=== PATIENT | male | born 1950 | race Caucasian/White ===

== ENCOUNTER 2022-01-28 14:18 | Inpatient (IN) ==
[2022-01-28 15:05] LABS: Basophils % 0.1 % (0.0-0.8); Hematocrit 47.7 VOL% (42.0-52.0); Hemoglobin 15.4 GM/DL (14.0-18.0); Immature Granulocytes % 0.5 %; Immature Granulocytes Absolute 0.08 #; Lymphocytes # 1.6 10*3/uL (1.4-4.0); Lymphocytes % 11.1 % (21.2-54.2); Mean Corpuscular HGB Conc 32.3 GM/DL (32-36); Mean Corpuscular Volume 85.6 FL (87-102); Mean Platelet Volume 12.5 FL (9.6-12.0); Monocytes % 6.4 % (1.7-12.7); Neutrophils % 81.9 % (38.7-73.9); Platelet Count 164 T/CUMM (130-400); Red Blood Count 5.57 MC/CUMM (3.8-5.5); Red Cell Distribution Width 12.5 % (9.3-17.3); White Blood Count 14.8 T/CUMM (4-12)
[2022-01-28 15:23] LABS: Alanine Aminotransferase 247 U/L (16-61); Albumin 3.3 G/DL (3.4-5.0); Alkaline Phosphatase 126 U/L (45-117); Aspartate Amino Transferase 367 U/L (0-37); Blood Urea Nitrogen 36 MG/DL (7-18); Carbon Dioxide 26 MMOL/L (21-32); Estimated Glom Filtration Rate 61 ML/MIN; Osmolality,Calculated 297.7 MOS/KG (273-304); Sodium 131 MMOL/L (136-145); Total Protein 7.4 G/DL (6.4-8.2)
[2022-01-28 15:25] LABS: Glucose 605 MG/DL (74-106)
[2022-01-28 16:11] LABS: INR 1.2; PT Patient Result 12.9 SECS (10.5-12.0)
[2022-01-28 16:26] LABS: Arterial Base Excess iSTAT -1 MMOL/L (-2.5-2.5); Arterial Bicarbonate iSTAT 23.9 MMOL/L (20-26); Arterial O2 Saturation iSTAT 96 % (95-100); Arterial PCO2 iSTAT 40 MM HG (35-48); Arterial PO2 iSTAT 81 MM HG (80-95); Arterial Total CO2 iSTAT 25 MMO/L (23-27); Arterial pH iSTAT 7.386 (7.35-7.45)
[2022-01-28] MEDS ORDERED: DEXTROSE 50% 25 GM/50 ML VIAL IV PRN (16:40)
[2022-01-28] MEDS ORDERED: GLUCAGON 1 MG VIAL IM PRN (16:40)
[2022-01-28] MEDS ORDERED: ONDANSETRON 4 MG/2 ML VIAL IV PRN (16:40)
[2022-01-28] MEDS ORDERED: ZALEPLON 5 MG CAPSULE PO PRN (16:48)
[2022-01-28] MEDS ORDERED: DOCUSATE SODIUM 100 MG CAPSULE PO PRN (16:48)
[2022-01-28] MEDS ORDERED: ASPIRIN EC 325 MG TABLET PO STA (16:50)
[2022-01-28] MEDS ORDERED: SODIUM CHLORIDE 0.45% 1,000 ML IV SCH (17:00)
[2022-01-28] MEDS ORDERED: DEXTROSE 10% 250 ML BAG IV PRN (17:05)
[2022-01-28 17:23] LABS: Bacteria,Urine Occasional /HPF (Few); Mucus,Urine Occasional /LPF (Occasional); RBC,Urine 1 /HPF (0-4)
[2022-01-28 17:32] LABS: Urine Color Light Yellow (Yellow)
[2022-01-28 17:33] LABS: Glucose,Urine (UA) >=1000 mg/dL (Negative); Ketones,Urine 40 mg/dL (Negative); Nitrite,Urine Negative (Negative); Protein,Urine Negative (Negative); Urine Appearance Clear (Clear); Urine Specific Gravity <= 1.005 (1.001-1.035)
[2022-01-28 17:34] LABS: Bilirubin,Urine Negative (Negative); Blood, Urine Negative (Negative); Urine Urobilinogen < 2.0 eU/dL (<2.0)
[2022-01-28] MEDS: ENOXAPARIN 40 MG/0.4 ML SYRINGE SUBCUT SCH (17:46)
[2022-01-29] MEDS: sitaGLIPtin 100 MG TABLET PO SCH ×2 (00:01→21:48)
[2022-01-29] MEDS: MIDODRINE 5 MG TABLET PO SCH ×3 (00:01→21:49)
[2022-01-29] MEDS: ACETAMINOPHEN 325 MG TABLET PO PRN (04:24)
[2022-01-29 05:03] LABS: Basophils % 0.1 % (0.0-0.8); Eosinophils % 0.2 % (0.00-10.9); Hematocrit 43.6 VOL% (42.0-52.0); Hemoglobin 14.5 GM/DL (14.0-18.0); Immature Granulocytes % 0.6 %; Immature Granulocytes Absolute 0.08 #; Lymphocytes # 2.1 10*3/uL (1.4-4.0); Lymphocytes % 15.6 % (21.2-54.2); Mean Corpuscular HGB Conc 33.3 GM/DL (32-36); Mean Corpuscular Volume 84.8 FL (87-102); Mean Platelet Volume 12.8 FL (9.6-12.0); Monocytes % 7.1 % (1.7-12.7); Neutrophils % 76.4 % (38.7-73.9); Platelet Count 173 T/CUMM (130-400); Red Blood Count 5.14 MC/CUMM (3.8-5.5); Red Cell Distribution Width 12.6 % (9.3-17.3); White Blood Count 13.7 T/CUMM (4-12)
[2022-01-29 05:25] LABS: Osmolality,Calculated 281.2 MOS/KG (273-304); Potassium 3.6 MMOL/L (3.5-5.1); Risk Ratio 5.87; Thyroid Stimulating Hormone 0.45 uIU/ml (0.358-3.74)
[2022-01-29 08:23] LABS: Albumin 2.9 G/DL (3.4-5.0); Bilirubin,Direct 0.2 MG/DL (0.0-0.20); Bilirubin,Indirect 0.6 MG/DL (0.0-1.0); Bilirubin,Total 0.8 MG/DL (0.20-1.00); Total Protein 7.1 G/DL (6.4-8.2)
[2022-01-29] MEDS ORDERED: DEXTROSE 50% 25 GM/50 ML VIAL IV PRN (08:33)
[2022-01-29] MEDS: INSULIN REGULAR 100 UNIT/ML SUBCUT SCH ×5 (09:13→21:50)
[2022-01-29] MEDS: PANTOPRAZOLE 40 MG TABLET PO SCH (09:41)
[2022-01-29] MEDS: DAPAGLIFLOZIN 10 MG TABLET PO SCH (09:41)
[2022-01-29] MEDS: oxyCODONE ER 20 MG TABLET PO SCH ×3 (09:41→21:49)
[2022-01-29] MEDS: ASPIRIN EC 325 MG TABLET PO SCH (09:41)
[2022-01-29] MEDS: BACLOFEN 10 MG TABLET PO SCH ×3 (09:41→23:08)
[2022-01-29] MEDS: SODIUM CHLORIDE 0.45% 1,000 ML IV SCH ×3 (10:04→21:50)
[2022-01-29] MEDS ORDERED: BACLOFEN 10 MG TABLET PO SCH (15:00)
[2022-01-29] MEDS ORDERED: oxyCODONE ER 20 MG TABLET PO SCH (15:00)
[2022-01-29] MEDS: ENOXAPARIN 40 MG/0.4 ML SYRINGE SUBCUT SCH (16:27)
[2022-01-29] MEDS: INSULIN GLARGINE 100 UNIT/ML SUBCUT SCH ×2 (21:50)
[2022-01-30 06:25] LABS: Basophils % 0.3 % (0.0-0.8); Eosinophils # 0.2 10*3/uL (0.0-0.87); Eosinophils % 1.8 % (0.00-10.9); Hematocrit 45.3 VOL% (42.0-52.0); Hemoglobin 14.6 GM/DL (14.0-18.0); Immature Granulocytes % 0.7 %; Immature Granulocytes Absolute 0.08 #; Mean Corpuscular HGB Conc 32.2 GM/DL (32-36); Mean Corpuscular Volume 87.8 FL (87-102); Mean Platelet Volume 13.1 FL (9.6-12.0); Neutrophils % 72.2 % (38.7-73.9); Platelet Count 162 T/CUMM (130-400); Red Blood Count 5.16 MC/CUMM (3.8-5.5); Red Cell Distribution Width 12.9 % (9.3-17.3); White Blood Count 11.8 T/CUMM (4-12)
[2022-01-30 06:35] LABS: Calcium 8.4 MG/DL (8.5-10.1); Osmolality,Calculated 274.8 MOS/KG (273-304)
[2022-01-30] MEDS: oxyCODONE ER 20 MG TABLET PO SCH ×3 (09:45→20:39)
[2022-01-30] MEDS: BACLOFEN 10 MG TABLET PO SCH ×3 (09:46→20:39)
[2022-01-30] MEDS: PANTOPRAZOLE 40 MG TABLET PO SCH (09:46)
[2022-01-30] MEDS: MIDODRINE 5 MG TABLET PO SCH ×2 (09:46→20:40)
[2022-01-30] MEDS: DAPAGLIFLOZIN 10 MG TABLET PO SCH (09:46)
[2022-01-30] MEDS: INSULIN REGULAR 100 UNIT/ML SUBCUT SCH ×4 (09:46→20:40)
[2022-01-30] MEDS: ASPIRIN EC 325 MG TABLET PO SCH (09:46)
[2022-01-30] MEDS: SODIUM CHLORIDE 0.45% 1,000 ML IV SCH (11:08)
[2022-01-30] MEDS: ENOXAPARIN 40 MG/0.4 ML SYRINGE SUBCUT SCH (18:35)
[2022-01-30] MEDS: sitaGLIPtin 100 MG TABLET PO SCH (20:40)
[2022-01-31 05:26] LABS: Basophils % 0.4 % (0.0-0.8); Eosinophils # 0.3 10*3/uL (0.0-0.87); Eosinophils % 3.2 % (0.00-10.9); Hematocrit 46.1 VOL% (42.0-52.0); Immature Granulocytes % 1.1 %; Lymphocytes # 2.1 10*3/uL (1.4-4.0); Lymphocytes % 22.2 % (21.2-54.2); Mean Corpuscular HGB Conc 32.5 GM/DL (32-36); Mean Corpuscular Volume 87.6 FL (87-102); Mean Platelet Volume 12.4 FL (9.6-12.0); Monocytes % 9.4 % (1.7-12.7); Neutrophils % 63.7 % (38.7-73.9); Platelet Count 163 T/CUMM (130-400); Red Blood Count 5.26 MC/CUMM (3.8-5.5); Red Cell Distribution Width 13.2 % (9.3-17.3); White Blood Count 9.4 T/CUMM (4-12)
[2022-01-31 05:50] LABS: Calcium 9.2 MG/DL (8.5-10.1); Osmolality,Calculated 279.5 MOS/KG (273-304)
[2022-01-31] MEDS: INSULIN REGULAR 100 UNIT/ML SUBCUT SCH ×4 (09:40→20:36)
[2022-01-31] MEDS: DAPAGLIFLOZIN 10 MG TABLET PO SCH (09:41)
[2022-01-31] MEDS: PANTOPRAZOLE 40 MG TABLET PO SCH (09:41)
[2022-01-31] MEDS: MIDODRINE 5 MG TABLET PO SCH ×2 (09:41→20:36)
[2022-01-31] MEDS: oxyCODONE ER 20 MG TABLET PO SCH ×3 (09:41→20:36)
[2022-01-31] MEDS: BACLOFEN 10 MG TABLET PO SCH ×3 (09:41→20:36)
[2022-01-31] MEDS: ASPIRIN EC 325 MG TABLET PO SCH (09:41)
[2022-01-31] MEDS ORDERED: TUBERCULIN SKIN TEST 0.1 ML SYRINGE INTRADERM ONE (16:30)
[2022-01-31] MEDS: ENOXAPARIN 40 MG/0.4 ML SYRINGE SUBCUT SCH (18:45)
[2022-01-31] MEDS: sitaGLIPtin 100 MG TABLET PO SCH (20:36)
[2022-02-01] MEDS: ACETAMINOPHEN 325 MG TABLET PO PRN (02:14)
[2022-02-01 06:21] LABS: Calcium 8.6 MG/DL (8.5-10.1); Osmolality,Calculated 281.3 MOS/KG (273-304); Potassium 4.2 MMOL/L (3.5-5.1)
[2022-02-01 07:54] LABS: Basophils % 0.3 % (0.0-0.8); Eosinophils # 0.3 10*3/uL (0.0-0.87); Eosinophils % 3.5 % (0.00-10.9); Hematocrit 46.5 VOL% (42.0-52.0); Immature Granulocytes % 0.9 %; Immature Granulocytes Absolute 0.08 #; Lymphocytes # 2.2 10*3/uL (1.4-4.0); Lymphocytes % 23.6 % (21.2-54.2); Mean Corpuscular HGB Conc 32.3 GM/DL (32-36); Mean Corpuscular Volume 87.2 FL (87-102); Monocytes % 9.7 % (1.7-12.7); Platelet Count 183 T/CUMM (130-400); Red Blood Count 5.33 MC/CUMM (3.8-5.5); Red Cell Distribution Width 13.4 % (9.3-17.3); White Blood Count 9.2 T/CUMM (4-12)
[2022-02-01] MEDS: ASPIRIN EC 325 MG TABLET PO SCH (08:51)
[2022-02-01] MEDS: oxyCODONE ER 20 MG TABLET PO SCH (08:51)
[2022-02-01] MEDS: PANTOPRAZOLE 40 MG TABLET PO SCH (08:51)
[2022-02-01] MEDS: MIDODRINE 5 MG TABLET PO SCH (08:52)
[2022-02-01] MEDS: DAPAGLIFLOZIN 10 MG TABLET PO SCH (08:52)
[2022-02-01] MEDS: BACLOFEN 10 MG TABLET PO SCH (08:52)
[2022-02-01] MEDS: INSULIN REGULAR 100 UNIT/ML SUBCUT SCH ×2 (08:53→12:05)
[2022-02-01 11:59] VITALS: BP 126/89
== END 2022-02-01 13:06 | DRG 637 ==
LOC: N.ED 14:18 → N.EDINP 16:35 → SUATTDRO 16:35 → N.EDINP 20:46 → N.TELEN 21:11
PROVIDERS: ADMIT Hospitalist; ATTEND Internal Medicine Geriatric Medicine

== ENCOUNTER 2022-06-05 15:08 | Inpatient (IN) ==
[2022-06-05 15:41] LABS: Basophils % 0.2 % (0.0-0.8); Eosinophils # 0.1 10*3/uL (0.0-0.87); Eosinophils % 0.5 % (0.00-10.9); Hematocrit 42.3 VOL% (42.0-52.0); Hemoglobin 13.5 GM/DL (14.0-18.0); Immature Granulocytes % 0.4 %; Immature Granulocytes Absolute 0.05 #; Lymphocytes # 1.6 10*3/uL (1.4-4.0); Lymphocytes % 13.6 % (21.2-54.2); Mean Corpuscular HGB Conc 31.9 GM/DL (32-36); Mean Corpuscular Volume 86.3 FL (87-102); Mean Platelet Volume 11.4 FL (9.6-12.0); Monocytes # 0.6 10*3/uL (0.11-0.8); Monocytes % 4.7 % (1.7-12.7); Neutrophils % 80.6 % (38.7-73.9); Platelet Count 222 T/CUMM (130-400); Red Cell Distribution Width 13.6 % (9.3-17.3); White Blood Count 11.7 T/CUMM (4-12)
[2022-06-05 15:50] LABS: PT Patient Result 11.4 SECS (10.5-12.0)
[2022-06-05] MEDS ORDERED: ONDANSETRON 4 MG/2 ML VIAL IV PRN (15:59)
[2022-06-05] MEDS ORDERED: ACETAMINOPHEN 325 MG TABLET PO PRN (15:59)
[2022-06-05] MEDS ORDERED: SODIUM CHLORIDE 0.9% 1,000 ML IV SCH (16:00)
[2022-06-05 16:09] LABS: Albumin 3.5 G/DL (3.4-5.0); Bilirubin,Total 0.4 MG/DL (0.20-1.00); Calcium 9.3 MG/DL (8.5-10.1); Osmolality,Calculated 283.5 MOS/KG (273-304); Potassium 4.5 MMOL/L (3.5-5.1); Thyroid Stimulating Hormone 1.1 uIU/ml (0.358-3.74); Total Protein 6.8 G/DL (6.4-8.2)
[2022-06-05] MEDS ORDERED: HEPARIN/NACL 0.9% 2 UNITS/ML 1,000 UNIT/500 ML BAG IV ONE (16:09)
[2022-06-05] MEDS ORDERED: HYDROmorphone 1 MG/1 ML SYRINGE ONE (16:09)
[2022-06-05] MEDS ORDERED: MIDAZOLAM 2 MG/2 ML VIAL ONE (16:09)
[2022-06-05 16:25] VITALS: BP 131/54
[2022-06-05] MEDS ORDERED: diphenhydrAMINE 50 MG/1 ML VIAL ONE (16:28)
[2022-06-05] MEDS ORDERED: GLUCAGON 1 MG VIAL IM PRN (16:34)
[2022-06-05] MEDS ORDERED: DEXTROSE 10% 250 ML BAG IV PRN (16:36)
[2022-06-05] MEDS ORDERED: CLORAZEPATE 7.5 MG TABLET PO PRN (16:46)
[2022-06-05 18:33] LABS: Bacteria,Urine Occasional /HPF (Few)
[2022-06-05 18:35] LABS: Bilirubin,Urine Negative (Negative); Blood, Urine Negative (Negative); Glucose,Urine (UA) Negative (Negative); Ketones,Urine Negative (Negative); Nitrite,Urine Negative (Negative); Protein,Urine Negative (Negative); Urine Appearance Clear (Clear); Urine Color Yellow (Yellow); Urine Urobilinogen 0.2 eU/dL (<2.0)
[2022-06-05] MEDS: INSULIN REGULAR 100 UNIT/ML SUBCUT SCH (20:40)
[2022-06-05] MEDS: oxyCODONE ER 20 MG TABLET PO SCH (20:44)
[2022-06-05] MEDS: PREGABALIN 75 MG CAPSULE PO SCH (20:44)
[2022-06-05] MEDS: ZALEPLON 5 MG CAPSULE PO PRN (20:44)
[2022-06-05] MEDS: MORPHINE 2 MG/1 ML SYRINGE IV PRN (23:51)
[2022-06-06 05:11] LABS: Basophils % 0.3 % (0.0-0.8); Eosinophils # 0.1 10*3/uL (0.0-0.87); Eosinophils % 0.5 % (0.00-10.9); Hematocrit 43.7 VOL% (42.0-52.0); Hemoglobin 13.9 GM/DL (14.0-18.0); Immature Granulocytes % 0.4 %; Immature Granulocytes Absolute 0.06 #; Lymphocytes # 3.2 10*3/uL (1.4-4.0); Lymphocytes % 21.4 % (21.2-54.2); Mean Corpuscular HGB Conc 31.8 GM/DL (32-36); Mean Corpuscular Volume 86.5 FL (87-102); Mean Platelet Volume 11.8 FL (9.6-12.0); Monocytes # 0.9 10*3/uL (0.11-0.8); Monocytes % 6.3 % (1.7-12.7); Neutrophils % 71.1 % (38.7-73.9); Platelet Count 206 T/CUMM (130-400); Red Blood Count 5.05 MC/CUMM (3.8-5.5); Red Cell Distribution Width 13.9 % (9.3-17.3)
[2022-06-06 05:32] LABS: Calcium 9.3 MG/DL (8.5-10.1); Potassium 4.2 MMOL/L (3.5-5.1); Risk Ratio 3.36
[2022-06-06] MEDS: MORPHINE 2 MG/1 ML SYRINGE IV PRN (06:07)
[2022-06-06] MEDS ORDERED: ceFAZolin 1,000 MG VIAL IRRIG ONE (07:30)
[2022-06-06] MEDS ORDERED: diphenhydrAMINE CAP 25 MG CAPSULE PO ONE (07:30)
[2022-06-06] MEDS ORDERED: DIAZEPAM 5 MG TABLET PO ONE (07:30)
[2022-06-06] MEDS: INSULIN REGULAR 100 UNIT/ML SUBCUT SCH ×4 (08:00→20:32)
[2022-06-06] MEDS: oxyCODONE ER 20 MG TABLET PO SCH ×3 (09:14→20:31)
[2022-06-06] MEDS: PREGABALIN 75 MG CAPSULE PO SCH ×2 (09:14→20:32)
[2022-06-06] MEDS: PANTOPRAZOLE 40 MG TABLET PO SCH (09:14)
[2022-06-06] MEDS ORDERED: HEPARIN/NACL 0.9% 2 UNITS/ML 1,000 UNIT/500 ML BAG IV ONE (10:03)
[2022-06-06] MEDS ORDERED: fentaNYL 100 MCG/2 ML VIAL ONE (10:06)
[2022-06-06] MEDS ORDERED: MIDAZOLAM 2 MG/2 ML VIAL ONE ×2 (10:06→10:29)
[2022-06-06] MEDS ORDERED: HYDROmorphone 1 MG/1 ML SYRINGE ONE ×2 (10:29→10:37)
[2022-06-06] MEDS ORDERED: TISSUE ADHESIVE 1 EACH APPLICATOR TOP ONE (11:10)
[2022-06-06] MEDS: ZALEPLON 5 MG CAPSULE PO PRN (20:32)
[2022-06-07] MEDS: INSULIN REGULAR 100 UNIT/ML SUBCUT SCH ×2 (08:38→13:38)
[2022-06-07] MEDS: PREGABALIN 75 MG CAPSULE PO SCH (08:59)
[2022-06-07] MEDS: PANTOPRAZOLE 40 MG TABLET PO SCH (08:59)
[2022-06-07] MEDS: oxyCODONE ER 20 MG TABLET PO SCH (08:59)
[2022-06-07] MEDS ORDERED: BACLOFEN 10 MG TABLET PO SCH ×2 (09:00→21:00)
[2022-06-07] MEDS ORDERED: ASPIRIN 325 MG TABLET PO SCH (09:00)
[2022-06-07] MEDS ORDERED: MIDODRINE 2.5 MG TABLET PO SCH (09:00)
[2022-06-07] MEDS ORDERED: DAPAGLIFLOZIN 10 MG TABLET PO SCH (09:00)
[2022-06-07] MEDS ORDERED: PREGABALIN 75 MG CAPSULE PO SCH (21:00)
[2022-06-07] MEDS ORDERED: INSULIN GLARGINE 100 UNIT/ML SUBCUT SCH (21:00)
[2022-06-07] MEDS ORDERED: sitaGLIPtin 100 MG TABLET PO SCH (21:00)
[2022-06-08] MEDS ORDERED: POLYETHYLENE GLYCOL POWDER 17 GM PACK PO SCH (09:00)
[2022-06-08] MEDS ORDERED: ESCITALOPRAM 10 MG TABLET PO SCH (09:00)
[2022-06-08] MEDS ORDERED: lisinopriL 5 MG TABLET PO SCH (09:00)
[2022-06-08] MEDS ORDERED: PANTOPRAZOLE 40 MG TABLET PO SCH (09:00)
[2022-06-08] MEDS ORDERED: FLUTICASONE 50 MCG NASAL SPRAY 16 GM BOTTLE BOTH NARES SCH (09:00)
[2022-06-10] MEDS ORDERED: SIMVASTATIN 20 MG TABLET PO SCH (09:00)
== END 2022-06-07 13:20 | disposition home or self-care (01) | DRG 244 ==
LOC: EDUNIT# → EDBD → N.ED 15:08 → N.CC 15:59
PROVIDERS: ADMIT Internal Medicine Cardiovascular Disease; ATTEND Internal Medicine Cardiovascular Disease